=== PATIENT | female | born 1995 | race African-American/Black ===

== ENCOUNTER 2017-05-03 16:05 | Emergency (ER) | payer OTHER, SELFPAY ==
[2017-05-03 16:25] LABS: Bilirubin Negative (Negative); Glucose, Urine (Dipstick) Negative (Negative); Ketone, Urine Negative (Negative)
[2017-05-03 16:26] LABS: Blood, Urine Moderate (Negative); Nitrite Negative (Negative); Protein, Urine (Dipstick) 100 mg/dL (Neg-Trace)
[2017-05-03 16:38] LABS: Bacteria/HPF 2+ HPF (None Seen); Hyaline Casts/LPF 0-3 HYALINE CAST LPF (0-3 Hyaline); RBC/HPF 21-50 HPF (0-3); Squamous Epithelial 0-3 HPF (0-3)
== END 2017-05-03 16:48 | disposition home or self-care (01) ==
LOC: ERS 16:05
DX: N34.2 Other urethritis (principal)
CPT/HCPCS: 81003; 81015; 81025; 87077; 87086; 87186; 99284